=== PATIENT | female | born 1950 | race Caucasian/White ===

== ENCOUNTER 2019-09-07 14:57 | Outpatient (CLI) | payer MEDICARE, SELFPAY ==
--- NOTE | ~2019-09-07 | MM_ITS ---
EXAMINATION: MM screening [facility] BI w brian HISTORY: Screening mammogram TECHNIQUE: Craniocaudal and mediolateral oblique 3-D tomosynthesis images were obtained and synthetic 2-D images were generated. CAD analysis was submitted and interpreted. COMPARISON: Comparison to multiple prior studies sequentially, with oldest reviewed study dated 06/30. BREAST PARENCHYMAL COMPOSITION: There are scattered areas of fibroglandular density. FINDINGS: There is no evidence of suspicious mass, calcification, or architectural distortion to sugg est malignancy in either breast. There has been no suspicious interval change. IMPRESSION: 1. No mammographic evidence of malignancy. 2. Recommend routine screening mammography in one year. BI-RADS Category 1: Negative Reviewed, dictated and finalized at location A.
--- NOTE | ~2019-09-07 | DEXA_ITS ---
Bone Density Report Name: Batsheva White Age: 69 Sex: Female Ethnicity: White Date of : 1950 Indication: postmenopausal; height loss; Referring Provider: Ping Mann Study: Bone densitometry was performed. Exam Date: September 07, 2019 Accession number: [id number] Bone Density: Region BMD T-score Z-score Classification AP Spine (L1-L4) 1.128 0.7 2.8 Normal Femoral Neck (Left) 0.822 -0.2 1.5 Normal Total Hip (Left) 0.917 -0.2 1.3 Normal Total Hip Bilateral Avg 0.879 -0.5 1.0 Normal Femoral Neck (Right) 0.794 -0.5 1.3 Normal Total Hip (Right) 0.840 -0.8 0.6 Normal World Health Organization criteria for BMD impression classify patients as: Normal (T-score at or above -1.0), Osteopenia (T-score between -1.0 and -2.5), or Osteoporosis (T-score at or below -2.5). 10-year Fracture Risk: FRAX not reported because: All T-scores for Spine Total, Hip Total, Femoral Neck at or above -1.0 Previous Exams: Region Exam Age BMD T-score BMD Change BMD Change Date g/cm2 vs Baseline vs Previous AP Spine(L1-L4) 09/07/2019 69 1.128 0.7 0.015(1.4%)# -0.003(-0.2%) 12/15/2017 67 1.131 0.8 0.018(1.6%)# -0.033(-2.9%)# 12/09/2011 61 1.164 1.1 0.051(4.6%)# -0.043(-3.6%)# 11/25/2009 59 1.207 1.5 0.095(8.5%)* 0.095(8.5%)* 02/25/2007 57 1.113 0.6 Total Hip(Left) 09/07/2019 69 0.917 -0.2 -0.112(-10.9%) -0.016(-1.7%) 12/15/2017 67 0.933 -0.1 -0.096(-9.3%)# -0.029(-3.0%)* 12/29/2014 64 0.962 0.2 -0.067(-6.5%)# -0.087(-8.3%)# 12/09/2011 61 1.049 0.9 0.019(1.9%)# 0.032(3.2%)# 11/25/2009 59 1.017 0.6 -0.013(-1.2%) -0.013(-1.2%) 02/25/2007 57 1.029 0.7 Total Hip(Right) 09/07/2019 69 0.840 -0.8 -0.107(-11.3%) 0.008(1.0%) 12/15/2017 67 0.832 -0.9 -0.115(-12.1%) -0.066(-7.4%)* 12/29/2014 64 0.898 -0.4 -0.049(-5.2%)# -0.038(-4.0%)# 12/09/2011 61 0.935 -0.1 -0.011(-1.2%)# -0.015(-1.6%)# 11/25/2009 59 0.950 0.1 0.004(0.4%) 0.004(0.4%) 02/25/2007 57 0.947 0.0 *Denotes significance at 95% confidence level, LSC for AP Spine = 0.022 g/cm2, LSC for Total Hip = 0.027 g/cm2 Clinical Information Provided by Patient: Has used the following medications: Vitamin D, Calcium Patient maximum height was 62.5 Menopause Age: 45 No regular weight bearing exercise Drinks caffeinated beverages Onset of menses at age 12 Number of children 3 Impression
== END 2019-09-07 14:58 | disposition home or self-care (01) ==
PROVIDERS: PCP Physician Assistant; Visit Provider Nurse Practitioner
DX: Z12.31 Encounter for screening mammogram for malignant neoplasm of breast (principal); Z78.0 Asymptomatic menopausal state
CPT/HCPCS: 77063; 77067; 77080

== ENCOUNTER 2019-11-30 12:00 | Outpatient (CLI) | payer MEDICARE, SELFPAY ==
[2019-11-30 12:18] LABS: Hematocrit 42.9 % (37.0-47.0); Hemoglobin 14.1 g/dL (12.0-15.0); Mean Corpuscular HGB Conc 32.9 g/dl (32-36); Mean Corpuscular Hemoglobin 33.6 pg (26-34); Mean Corpuscular Volume 102.1 fl (80-100); Mean Platelet Volume 9.2 fl (7.4-10.4); Platelet Count Result 196 k/mm3 (150-375); Red Cell Distribution Width 12.7 % (11.5-14.5); White Blood Count 5.2 K/mm3 (4.5-10.0)
[2019-11-30 12:30] LABS: Alanine Aminotransferase 15 U/L (4-35); Albumin Level 4.3 g/dL (3.5-5.1); Alkaline Phosphatase 53 U/L (38-126); Anion Gap 5 mmol/L (8-16); Aspartate Amino Transferase 36 U/L (14-36); Bilirubin,Total 0.6 mg/dL (0.2-1.3); Blood Urea Nitrogen 11 mg/dL (7-17); Calcium 9.5 mg/dL (8.4-10.2); Carbon Dioxide 28 mmol/L (22-30); Chloride 105 mmol/L (98-107); Cholesterol 191 mg/dL (0-200); Estimated Glomerular Filt Rate > 60; Glucose 90 mg/dL (65-105); HDL Direct 66 mg/dL; Potassium 4.8 mmol/L (3.4-5.0); Sodium 138 mmol/L (137-145); Triglycerides 91 mg/dL (<150)
[2019-11-30 12:42] LABS: LDL Cholesterol Direct 86 mg/dL
[2019-11-30 13:42] LABS: Folic Acid > 20.0 ng/mL (2.76->20)
== END 2019-11-30 12:01 | disposition home or self-care (01) ==
PROVIDERS: PCP Physician Assistant; Visit Provider Physician Assistant
DX: R53.83 Other fatigue (principal); E78.5 Hyperlipidemia, unspecified
CPT/HCPCS: 36415; 80053; 80061; 82607; 82746; 84443; 85027

== ENCOUNTER → 2020-06-27 13:38 | Outpatient (CLI) | payer MEDICARE, SELFPAY ==
--- NOTE | ~2020-06-27 | MR_ITS ---
EXAMINATION: MR lumbar spine wo con DATE: 06/27/2020 14:16 INDICATION: Lumbar radiculopathy with low back pain and bilateral leg pain. TECHNIQUE: Magnetic resonance imaging (MRI) of the lumbar spine was performed without intravenous con trast. Sequences included sagittal T2-weighted FSE, sagittal T2-weighted FS FSE, sagittal T1-weighted FSE, and axial T2-weighted FSE. COMPARISON: None FINDINGS: Unchanged 102 mm retrolisthesis L1 on L2, 7 mm anterolisthesis L4 on L5 and 2 mm retrolisthesis L5 on S1. Mild anterior wedging at T9. The more caudal thoracic and lumbar vertebral body heights are norm al. Severe disc height loss at L5-S1 and at T8-T9 through T10-T11. Moderate disc height loss at T11-T 12. Mild to moderate disc height loss at L4-L5. There are annular fissures at both L4-L5 and L5-S1. M ild fibrovascular degenerative endplate changes at multiple levels in the lower thoracic spine. Marro w signal is otherwise normal. The conus medullaris terminates at L1. There is normal signal in the ca udal spinal cord. Paravertebral soft tissues are unremarkable. The following disc levels are specific ally discussed: [id number]: Disc is mildly bulging. There is mild bilateral facet joint osteoarthritis. There is mild h ypertrophy of the ligamentum flavum.There is minimal bilateral neural foraminal stenosis. There is mi nimal central canal stenosis. T12-L1: Small right subarticular zone disc protrusion. There is mild bilateral facet joint osteoarthr itis. There is no neural foraminal stenosis. There is minimal central canal stenosis. L1-L2: Disc is bulging. There is hypertrophy of the ligamentum flavum. There is mild to moderate bila teral facet joint osteoarthritis. There is mild bilateral neural foraminal stenosis. There is mild ce ntral canal stenosis. L2-L3: Disc is mildly bulging with superimposed right foraminal zone disc protrusion. There is hypert rophy of the ligamentum flavum. There is moderate right and mild to moderate left facet joint osteoar thritis. There is mild to moderate left and moderate right neural foraminal stenosis. There is mild c entral canal stenosis along with mild narrowing of the left and right lateral recesses. L3-L4: Disc is bulging. There is hypertrophy of the ligamentum flavum. There is severe bilateral face t joint osteoarthritis. There is mild to moderate bilateral neural foraminal stenosis. There is moder ate central canal stenosis along with moderate narrowing of the left and right lateral recesses. L4-L5: Broad-based disc extrusion extending from foraminal zone to foraminal zone with disc material extending up to 3 mm cephalad to the level of the inferior endplate of L4. There is severe bilateral facet joint osteoarthritis. There is moderate bilateral neural foraminal stenosis. There is severe ce ntral canal stenosis. L5-S1: Disc is mildly bulging. There is moderate right and mild to moderate left facet joint osteoart hritis. There is mild right and minimal left neural foraminal stenosis. There is no central canal monika nosis. IMPRESSION: 1. Mild interval progression in moderate lumbar and severe lower thoracic spondylosis with unchanged 7 mm anterolisthesis L4 on L5 which contributes to severe central canal stenosis at this level. Reviewed, dictated and finalized at location A. IMPRESSION: 1. Mild interval progression in moderate lumbar and severe lower thoracic spond ylosis with unchanged 7 mm anterolisthesis L4 on L5 which contributes to severe central canal stenosis at this level.
--- NOTE | ~2020-06-27 | XR_ITS ---
EXAMINATION: XR lumbar spine min 4V DATE: 06/27/2020 14:51 INDICATION: Lumbar radiculopathy TECHNIQUE: Anteroposterior and lateral lumbosacral views of the lumbar spine along with 3 standing la teral views in neutral, flexion and extension were obtained. COMPARISON: Lumbar spine MR dated 06/27/2020 FINDINGS: 9 mm anterolisthesis L4 on L5 in the neutral position which increases to 11 mm with flexion and decre ases to 7 mm with extension. 1.5 mm anterolisthesis of L4 on L5 in the neutral position which increas es to 2 mm with flexion and decreases to 1 mm with extension. Vertebral body heights are normal. Tere re disc height loss at L5-S1 and at T9-T10 and T10-T11. Moderate disc height loss at T11-T12 and L4-L 5. Bilateral severe facet osteoarthritis in the mid to lower lumbar spine. Sacrum and bilateral sacro iliac joints are unremarkable. IMPRESSION: 1. Moderate to severe lumbar and severe lower thoracic spondylosis. 2. 9 mm anterolisthesis L4 on L5 in the standing neutral position which increases to 11 mm with flexi on and decreases to 7 mm with extension. Reviewed, dictated and finalized at location A. IMPRESSION: 1. Moderate to severe lumbar and severe lower thoracic spondylosis. 2. 9 mm anterolisthesis L4 on L5 in the standing neutral position which increas es to 11 mm with flexion and decreases to 7 mm with extension.
== END ==
PROVIDERS: PCP Physician Assistant; Visit Provider Nurse Practitioner Family
DX: M47.25 Other spondylosis with radiculopathy, thoracolumbar region (principal); M48.05 Spinal stenosis, thoracolumbar region; M47.27 Other spondylosis with radiculopathy, lumbosacral region; M48.07 Spinal stenosis, lumbosacral region
CPT/HCPCS: 72110; 72148

== ENCOUNTER 2020-11-29 10:28 | Outpatient (CLI) | payer MEDICARE, SELFPAY ==
[2020-11-29 11:47] LABS: Hematocrit 42.2 % (37.0-47.0); Hemoglobin 13.9 g/dL (12.0-15.0); Mean Corpuscular HGB Conc 32.9 g/dl (32-36); Mean Corpuscular Volume 103.2 fl (80-100); Mean Platelet Volume 9.4 fl (7.4-10.4); Platelet Count Result 223 k/mm3 (150-375); Red Blood Count 4.09 M/mm3 (4.2-5.4); Red Cell Distribution Width 12.7 % (11.5-14.5); White Blood Count 6.6 K/mm3 (4.5-10.0)
[2020-11-29 12:03] LABS: Alanine Aminotransferase 12 U/L (4-35); Albumin Level 4.9 g/dL (3.5-5.1); Alkaline Phosphatase 55 U/L (38-126); Anion Gap 9 mmol/L (8-16); Aspartate Amino Transferase 30 U/L (14-36); Bilirubin,Total 0.4 mg/dL (0.2-1.3); Blood Urea Nitrogen 9 mg/dL (7-17); Calcium 9.9 mg/dL (8.4-10.2); Carbon Dioxide 30 mmol/L (22-30); Chloride 101 mmol/L (98-107); Cholesterol 212 mg/dL (0-200); Estimated Glomerular Filt Rate > 60; Glucose 90 mg/dL (65-110); HDL Direct 71 mg/dL; Potassium 4.4 mmol/L (3.4-5.0); Sodium 140 mmol/L (137-145); Triglycerides 130 mg/dL (<150)
[2020-11-29 12:14] LABS: LDL Cholesterol Direct 89 mg/dL
[2020-11-29 14:36] LABS: Folic Acid > 20.0 ng/mL (2.76->20)
== END 2020-11-29 10:29 | disposition home or self-care (01) ==
LOC: ANHLAB 10:30
PROVIDERS: PCP Physician Assistant; Visit Provider Physician Assistant
DX: E78.5 Hyperlipidemia, unspecified (principal); R53.83 Other fatigue
CPT/HCPCS: 36415; 80053; 80061; 82607; 82746; 84443; 85027

== ENCOUNTER 2021-02-15 15:29 | Outpatient (CLI) | payer MEDICARE, SELFPAY ==
--- NOTE | ~2021-02-15 | MM_ITS ---
EXAMINATION: MM screening [place] BI w brian HISTORY: Screening TECHNIQUE: Craniocaudal and mediolateral oblique 3-D tomosynthesis images were obtained and synthetic 2-D images were generated. CAD analysis was submitted and interpreted. COMPARISON: Comparison to multiple prior studies sequentially, with oldest reviewed study dated 12/09. BREAST PARENCHYMAL COMPOSITION: There are scattered areas of fibroglandular density. FINDINGS: There is no evidence of suspicious mass, calcification, or architectural distortion to sugg est malignancy in either breast. There has been no suspicious interval change. IMPRESSION: 1. No mammographic evidence of malignancy. 2. Recommend routine screening mammography in one year. BI-RADS Category 1: Negative Reviewed, dictated and finalized at location A. 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
== END 2021-02-15 15:30 | disposition home or self-care (01) ==
LOC: ANHIMG 15:31
PROVIDERS: PCP Physician Assistant; Visit Provider Obstetrics & Gynecology
DX: Z12.31 Encounter for screening mammogram for malignant neoplasm of breast (principal)
CPT/HCPCS: 77063; 77067

== ENCOUNTER → 2021-09-05 15:40 | Outpatient (CLI) | payer MEDICARE, SELFPAY ==
--- NOTE | ~2021-09-05 | XR_ITS ---
EXAM: XR hip LT min 3V w AP pelvis DATE: 09/05/2021 16:24 HISTORY: M25.552 - Pain in left hip . COMPARISON: None available. FINDINGS: Decreased mineralization. No fracture or dislocation. No lytic or blastic lesion. Degenera tive changes in the lower lumbar spine and pubic symphysis. Mild superior bilateral hip joint space n arrowing. Scattered enthesopathy. No erosion or periosteal change. Soft tissues within normal limits. IMPRESSION: No acute osseous finding in the left hip. Reviewed, dictated and finalized at location K.
--- NOTE | ~2021-09-05 | XR_ITS ---
EXAM: XR lumbar spine 6V w bending DATE: 09/05/2021 16:23 HISTORY: M54.50 - Low back pain, unspecified . COMPARISON: None available. FINDINGS: 5 nonrib-bearing lumbar-type vertebral bodies. Pedicles intact. Normal vertebral body alig nment. 2 mm anterolisthesis of L3 on L4. 8 mm anterolisthesis of L4 on L5. Moderate disc space narrow ing at L4-5, with severe narrowing at L5-S1, and mild narrowing at multiple additional levels. Multil evel facet sclerosis and interspinous narrowing. IMPRESSION: Grade 2 anterolisthesis of L5 on S1. Grade 1 anterolisthesis of L3 on L4. No dynamic list hesis detected. Multilevel degenerative disc disease. Multilevel severe facet arthropathy and intersp inous impingement. Reviewed, dictated and finalized at location K. IMPRESSION: Grade 2 anterolisthesis of L5 on S1. Grade 1 anterolisthesis of L3 on L4. No dynamic listhesis detected. Multilevel degenerative disc disease. Mul tilevel severe facet arthropathy and interspinous impingement.
== END ==
PROVIDERS: PCP Internal Medicine; Visit Provider Physician Assistant
DX: M25.552 Pain in left hip (principal); M54.50 Low back pain, unspecified; M43.17 Spondylolisthesis, lumbosacral region; M51.36 Other intervertebral disc degeneration, lumbar region; M12.88 Other specific arthropathies, not elsewhere classified, other specified site
CPT/HCPCS: 72114; 73502

== ENCOUNTER 2021-11-30 14:17 | Outpatient (CLI) | payer MEDICARE, SELFPAY ==
[2021-11-30 15:01] LABS: Hematocrit 40.1 % (37.0-47.0); Hemoglobin 12.9 g/dL (12.0-15.0); Mean Corpuscular HGB Conc 32.2 g/dl (32-36); Mean Corpuscular Hemoglobin 33.2 pg (26-34); Mean Corpuscular Volume 103.1 fl (80-100); Mean Platelet Volume 9.5 fl (7.4-10.4); Platelet Count Result 208 k/mm3 (150-375); Red Blood Count 3.89 M/mm3 (4.2-5.4); Red Cell Distribution Width 13.2 % (11.5-14.5); White Blood Count 6.3 K/mm3 (4.5-10.0)
[2021-11-30 15:26] LABS: LDL Cholesterol Direct 77 mg/dL
[2021-11-30 15:31] LABS: Alanine Aminotransferase 17 U/L (6-35); Albumin Level 4.3 g/dL (3.5-5.1); Alkaline Phosphatase 52 U/L (38-126); Anion Gap 9 mmol/L (8-16); Aspartate Amino Transferase 30 U/L (14-36); Bilirubin,Total 0.3 mg/dL (0.2-1.3); Blood Urea Nitrogen 13 mg/dL (7-17); Calcium 8.8 mg/dL (8.4-10.2); Carbon Dioxide 27 mmol/L (22-30); Chloride 99 mmol/L (98-107); Cholesterol 192 mg/dL (0-200); Estimated Glomerular Filt Rate > 60; Glucose 83 mg/dL (65-110); HDL Direct 78 mg/dL; Potassium 3.9 mmol/L (3.4-5.0); Sodium 135 mmol/L (137-145); Triglycerides 98 mg/dL (<150)
[2021-11-30 16:20] LABS: Folic Acid 19.2 ng/mL (2.76->20)
== END 2021-11-30 14:18 | disposition home or self-care (01) ==
PROVIDERS: PCP Internal Medicine; Visit Provider Physician Assistant
DX: E78.5 Hyperlipidemia, unspecified (principal); R53.83 Other fatigue
CPT/HCPCS: 36415; 80053; 80061; 82607; 82746; 84443; 85027

== ENCOUNTER 2021-12-06 15:11 | Emergency (ER) | payer MEDICARE, SELFPAY ==
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
--- NOTE | ~2021-12-06 | CT_ITS ---
EXAMINATION: CT cervical spine wo con DATE: 12/06/2021 16:21 INDICATION: Head injury TECHNIQUE: Computed tomography (CT) of the cervical spine was performed without intravenous contrast. Automated exposure control and iterative reconstruction technique were employed. The dose-length pro duct was 161.93 mGy-cm. COMPARISON: None FINDINGS: 2 mm retrolisthesis C3 on C4 and C4 on C5. 1 mm retrolisthesis C5 on C6. 1-2 mm anterolisthesis C7 on T1. Vertebral body heights are normal. No fracture. Severe disc height loss with prominent degenerat katarina endplate changes and severe uncovertebral osteoarthritis at C3-C4 through C6-C7 and at T1-T2 and T2-T3. Moderate disc height loss at T3-T4 and T4-T5. Mild disc height loss at C2-C3 and C7-T1. Sectional [employer] Mold As[employer]er ior disc osteophyte complexes resulting in mild central canal stenosis from C2-C3 through C6-7. Multi level bilateral moderate to severe cervical and upper thoracic facet osteoarthritis. There is moderat e to severe neural foraminal stenosis on the left at C4-C5:, Moderate neural foraminal stenosis on th e left at C5-C6 and C6-C7, on the right at C3-C4 and bilaterally at T1-T2 and T2-T3. Calcified left a pical nodule consistent with old granulomatous disease. Cervical soft tissues are unremarkable. IMPRESSION: 1. Severe cervical spondylosis. No acute osseous abnormality. Reviewed, dictated and finalized at location A.
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
[2021-12-06 15:08] VITALS: BP 120/64; PULSE 87; RESP 18; TEMP 36.3; O2SAT 98
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
--- NOTE | 2021-12-06 16:36 | PC.NURSE ---
[facility] lights and /sirens to [facility] ER ETA 20 min Trip # [phone]
[2021-12-06 16:42] VITALS: BP 117/66; PULSE 84; RESP 16; O2SAT 98
[2021-12-06 16:43] VITALS: BP 117/66; PULSE 84; RESP 16; O2SAT 98
--- NOTE | 2021-12-06 17:12 | PC.NURSE ---
To [facility] via [place] [facility].
== END 2021-12-06 17:12 | disposition short-term general hospital (02) ==
PROVIDERS: Emergency Provider Emergency Medicine; PCP Physician Assistant
DX: S09.90XA Unspecified injury of head, initial encounter (principal); S39.92XA Unspecified injury of lower back, initial encounter; Z86.19 Personal history of other infectious and parasitic diseases; Z87.891 Personal history of nicotine dependence; V19.40XA Pedal cycle driver injured in collision with unspecified motor vehicles in traffic accident, initial encounter; Y93.55 Activity, bike riding
CPT/HCPCS: 70450; 71045; 72125; 72170; 99285

== ENCOUNTER → 2022-01-17 09:24 | Outpatient (CLI) | payer MEDICARE, SELFPAY ==
--- NOTE | ~2022-01-17 | XR_ITS ---
EXAMINATION: XR lumbar spine min 4V DATE: 01/17/2022 09:43 INDICATION: Six week status post compression fracture TECHNIQUE: AP view the lumbar spine and lateral views of the lumbar spine in neutral, flexion, and ex tension are submitted. COMPARISON: 09/05/2021 FINDINGS: There is stable grade 2 anterolisthesis of L4-5. No laxity is present with flexion or exten jalen. There is a compression fracture of L2 with 40% loss of anterior vertebral body height. The brianda ining lumbar vertebral body heights are normal. There is severe spondylosis of the visualized lower t horacic spine. There are moderate loss of intervertebral disc space height at L4-5. There is moderate facet osteoarthritis. There is mild sclerosis at the left sacroiliac joint. IMPRESSION: 1. L2 compression fracture with 40% loss of anterior vertebral body height. 2. Mild lumbar spondylosis with stable grade 2 anterolisthesis of L4 on L5. Reviewed, dictated and finalized at location B. ECTOR
== END ==
PROVIDERS: PCP Internal Medicine; Visit Provider Neurological Surgery
DX: S32.020A Wedge compression fracture of second lumbar vertebra, initial encounter for closed fracture (principal); M47.816 Spondylosis without myelopathy or radiculopathy, lumbar region; T14.90XA Injury, unspecified, initial encounter
CPT/HCPCS: 72110

== ENCOUNTER 2022-01-22 12:03 | Outpatient (CLI) | payer MEDICARE, SELFPAY ==
--- NOTE | ~2022-01-22 | DEXA_ITS ---
Bone Density Report Name: EDMUND ALEX Age: 72 Sex: Female Ethnicity: White Date of : 1950 Indication: postmenopausal; screening for osteoporosis; height loss; prior fracture; Referring Provider: KEO FRIAS Study: Bone densitometry was performed. Exam Date: January 22, 2022 Accession number: [id number] Bone Density: Region BMD T-score Z-score Classification AP Spine(L1, L3, L4) 1.107 0.5 2.7 Normal Femoral Neck (Left) 0.782 -0.6 1.3 Normal Total Hip (Left) 0.865 -0.6 1.0 Normal Femoral Neck (Right) 0.764 -0.8 1.1 Normal Total Hip (Right) 0.818 -1.0 0.6 Normal Total Hip Mean 0.842 -0.8 0.8 Normal World Health Organization criteria for BMD impression classify patients as: Normal (T-score at or above -1.0), Osteopenia (T-score between -1.0 and -2.5), or Osteoporosis (T-score at or below -2.5). 10-year Fracture Risk: FRAX not reported because: All T-scores for Spine Total, Hip Total, Femoral Neck at or above -1.0 Prior hip or vertebral fracture Clinical Information Provided by Patient: Have had a previous hip or vertebral fracture Has had a low trauma fracture Has used the following medications: Vitamin D, Calcium Patient maximum height was 62 Drinks caffeinated beverages Onset of menses at age 12 Number of children 3 Impression: The patient has normal bone mass. The patient has risk factors, including: previous fracture. Discussion: INCREASED RISK OF FRACTURE DUE TO HISTORY OF FRACTURE. The patient's previous fracture puts the patient at high risk of a future fracture. In untreated patients, the risk of osteoporotic fracture increases approximately two-fold for each 1.0 SD decrease in T-score. Low bone density is not the only risk factor for fracture; also consider factors such as patient's age, frailty or poor health, risk of falling, risk of injury, previous osteoporotic fracture, family history of osteoporosis, cigarette smoking, low body weight, etc. Not everyone with a low trauma fracture has osteoporosis; osteomalacia and other metabolic bone disorders should also be considered. Patients who have osteoporosis should be evaluated for specific diseases and conditions (secondary causes) that may cause or contribute to bone loss and fracture risk. National Osteoporosis Foundation (NOF) recommends pharmacologic intervention for patients with a prior hip or vertebral fracture regardless of BMD T-score. The patient should follow a healthful lifestyle (good nutrition with adequate calcium and vitamin D, and appropriate weight-bearing exercise). Follow-Up: Consider a repeat BMD and Vertebral Fracture Assessment (VFA) exam in 2 years or sooner if medically necessary, to reassess this patient's status. Reported by: HANNAH on 01/22/2022 12:26:00 PM.
== END 2022-01-22 12:04 | disposition home or self-care (01) ==
PROVIDERS: PCP Internal Medicine; Visit Provider Neurological Surgery
DX: S32.020A Wedge compression fracture of second lumbar vertebra, initial encounter for closed fracture (principal)
CPT/HCPCS: 77080

== ENCOUNTER 2022-01-23 08:45 | Outpatient (CLI) | payer MEDICARE, SELFPAY ==
[2022-01-23 09:08] LABS: Basophils Percent Auto 0.7 % (0.2-1.2); Eosinophils Absolute Auto 0.1 K/mm3 (0-0.3); Eosinophils Percent Auto 2.6 % (0-4.4); Hematocrit 41.1 % (37.0-47.0); Hemoglobin 13.4 g/dL (12.0-15.0); Immature Granulocyte Absolute 0.01 K/mm3 (0.00-0.031); Immature Granulocyte Percent A 0.2 % (0-0.5); Lymphocytes Absolute Auto 2.51 K/mm3 (0.9-3.2); Lymphocytes Percent Auto 45.7 % (18.3-44.2); Mean Corpuscular HGB Conc 32.6 g/dl (32-36); Mean Corpuscular Hemoglobin 33.4 pg (26-34); Mean Corpuscular Volume 102.5 fl (80-100); Mean Platelet Volume 8.9 fl (7.4-10.4); Monocytes Absolute Auto 0.6 K/mm3 (0.1-0.6); Neutrophils Absolute Auto 2.2 K/mm3 (1.3-6.7); Neutrophils Percent Auto 40.8 % (45.5-73.1); Platelet Count Result 220 k/mm3 (150-375); Red Blood Count 4.01 M/mm3 (4.2-5.4); Red Cell Distribution Width 13.7 % (11.5-14.5); White Blood Count 5.5 K/mm3 (4.5-10.0)
[2022-01-23 09:20] LABS: Alanine Aminotransferase 17 U/L (6-35); Albumin Level 4.5 g/dL (3.5-5.1); Alkaline Phosphatase 55 U/L (38-126); Anion Gap 8 mmol/L (8-16); Aspartate Amino Transferase 38 U/L (14-36); Bilirubin,Total 0.7 mg/dL (0.2-1.3); Blood Urea Nitrogen 10 mg/dL (7-17); Calcium 9.7 mg/dL (8.4-10.2); Carbon Dioxide 32 mmol/L (22-30); Chloride 100 mmol/L (98-107); Cholesterol 214 mg/dL (0-200); Estimated Glomerular Filt Rate > 60; Glucose 89 mg/dL (65-110); HDL Direct 80 mg/dL; Potassium 4.2 mmol/L (3.4-5.0); Sodium 140 mmol/L (137-145); Triglycerides 100 mg/dL (<150)
[2022-01-23 09:36] LABS: LDL Cholesterol Direct 81 mg/dL
[2022-01-23 10:20] LABS: Hepatitis C Virus Antibody Reactive (Negative)
[2022-01-23 10:32] LABS: Folic Acid > 20.0 ng/mL (2.76->20)
[2022-01-25 15:21] LABS: Hepatitis C RNA, Quant PCR <15 IU/mL
== END 2022-01-23 08:46 | disposition home or self-care (01) ==
PROVIDERS: PCP Internal Medicine; Visit Provider Internal Medicine
DX: E78.5 Hyperlipidemia, unspecified (principal); Z86.19 Personal history of other infectious and parasitic diseases; R53.83 Other fatigue
CPT/HCPCS: 36415; 80053; 80061; 82607; 82746; 84443; 85025; 86803; 87522

== ENCOUNTER 2022-01-29 13:05 | Outpatient (CLI) | payer MEDICARE, SELFPAY ==
--- NOTE | 2022-01-29 13:46 | ECHO_ITS ---
Patient Info Name: Batsheva White Age: 72 years : 1950 Gender: Female Ht: 61 in Wt: 116 lbs BSA: 1.51 m2 HR: 66 bpm BP: 136 / 89 mmHg Heart Rhythm: Sinus Rhythm Technical Quality: Good Exam Date: 01/29/2022 2:12 PM Exam Location: [facility] Pulmonary Patient Status: Outpatient Admit Date: 01/29/2022 Staff Ordering Physician: Marty Patrick DO Resin Maker: Shayy Goldman RDCS Attending Provider: Marty Patrick DO Referring Physician: Celina BRIDGES; Exam Type: CA echo doppler color flow Study Info Indications I51.3 - Intracardiac thrombosis, not elsewhere classified Complete two-dimensional, color flow and Doppler transthoracic echocardiogram is performed. Summary 1. Complete two-dimensional, color flow and Doppler transthoracic echocardiogram is performed. 2. Normal left ventricular size and thickness with good contractility of all segments. Normal diastolic function. The calculated ejection fraction is 50 9%; visually appeared 55-60%. Global longitudinal strain is normal at -17%. 3. Borderline right ventricular enlargement with normal function. 4. Left atrial chamber dimension is mildly enlarged. 5. Right atrial chamber dimension is mildly enlarged. 6. There is moderate tricuspid valve regurgitation. 7. Mild pulmonary hypertension, estimated pulmonary arterial systolic pressure is 35 mmHg. 8. Normal sinus rhythm. Left Ventricle Left ventricular chamber dimension is normal. Left ventricular systolic function is normal, estimated at 55-60%. There is no increased left ventricular wall thickness. Left ventricular septal wall motion is normal. The left ventricular diastolic function is normal. Global longitudinal strain is normal at -17 %. Right Ventricle Right ventricular chamber dimension is mildly enlarged. Right ventricular systolic function is normal. Left Atria Left atrial chamber dimension is mildly enlarged. Right Atria Right atrial chamber dimension is mildly enlarged. Aortic Valve The aortic valve is trileaflet. There is no aortic valve sclerosis. There is no aortic valve stenosis. There is trace aortic valve regurgitation. Pulmonic Valve The pulmonic valve is normal. There is no pulmonic valve stenosis. There is trace pulmonic regurgitation. Mitral Valve The mitral valve has normal leaflets. There is no mitral valve stenosis. There is trace mitral valve regurgitation. Tricuspid Valve The tricuspid valve leaflets are normal. There is no significant tricuspid valve stenosis. There is moderate tricuspid valve regurgitation. Mild pulmonary hypertension, estimated pulmonary arterial systolic pressure is 35 mmHg. Pericardium/Pleural The pericardium appears normal. There is no pericardial effusion. Inferior Vena Cava Normal inferior vena cava with >50% collapse upon inspiration consistent with Empty right atrial pressure, 10 mmHg. Aorta The aortic root size at the sinus of Valsalva is normal. The prox ascending aorta size is normal. Left Ventricular Outflow Tract Name Value Normal LVOT 2D LVOT Diameter 1.9 cm LVOT Doppler LVOT Pea
[2022-01-29 14:08] LABS: Appearance Urine Clear (Clear); Bilirubin Urine Negative (Negative); Blood Urine Negative (Negative); Color Urine Yellow (Yellow); Glucose Urine UA Negative (Negative); Ketones Urine Negative (Negative); Leukocyte Esterase Ur Negative LEU/UL (NEGATIVE); Nitrate Urine Negative (Negative); Protein Urine Negative (Negative); Urobilinogen Urine 0.2 mg/dL (<2.0)
[2022-01-29 14:12] LABS: Add Urine Microscopic? NO
== END 2022-01-29 13:06 | disposition home or self-care (01) ==
PROVIDERS: PCP Internal Medicine; Visit Provider Internal Medicine
DX: I51.3 Intracardiac thrombosis, not elsewhere classified (principal); I27.20 Pulmonary hypertension, unspecified; I51.7 Cardiomegaly; R30.0 Dysuria; Z09 Encounter for follow-up examination after completed treatment for conditions other than malignant neoplasm
CPT/HCPCS: 81003; 93306

== ENCOUNTER 2022-02-16 13:39 | Outpatient (CLI) | payer MEDICARE, SELFPAY ==
--- NOTE | ~2022-02-16 | MM_ITS ---
EXAMINATION: MM screening [place] BI w brian HISTORY: Screening TECHNIQUE: Craniocaudal and mediolateral oblique 3-D tomosynthesis images were obtained and synthetic 2-D images were generated. CAD analysis was submitted and interpreted. COMPARISON: Comparison to multiple prior studies sequentially, with oldest reviewed study dated 04/2015. BREAST PARENCHYMAL COMPOSITION: There are scattered areas of fibroglandular density. FINDINGS: There is no evidence of suspicious mass, calcification, or architectural distortion to sugg est malignancy in either breast. There has been no suspicious interval change. IMPRESSION: 1. No mammographic evidence of malignancy. 2. Recommend routine screening mammography in one year. BI-RADS Category 1: Negative Reviewed, dictated and finalized at location B. 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
== END 2022-02-16 13:40 | disposition home or self-care (01) ==
LOC: ANHIMG 13:43
PROVIDERS: PCP Internal Medicine; Visit Provider Obstetrics & Gynecology
DX: Z12.31 Encounter for screening mammogram for malignant neoplasm of breast (principal)
CPT/HCPCS: 77063; 77067

== ENCOUNTER → 2022-02-18 09:18 | Outpatient (CLI) | payer MEDICARE, SELFPAY ==
--- NOTE | ~2022-02-18 | CT_ITS ---
EXAMINATION: CT diagnostic chest w con DATE: 02/18/2022 09:49 INDICATION: Pulmonary hypertension TECHNIQUE: Transaxial computed tomographic images of the chest were obtained after the administration of 75 cc of Omnipaque 350 intravenous contrast. The dose-length product (DLP) was 124.65 mGy-cm. Ite rative reconstruction was used. COMPARISON: None FINDINGS: There is mild dependent atelectasis. The lungs are free of focal airspace opacities. No ple ural effusion or pneumothorax. No pathologically enlarged thoracic lymph nodes are identified. The he art size is normal. There are no definite findings of pulmonary hypertension. There is a 10 mm cyst o f the left hepatic lobe. There is severe thoracic spondylosis. A burst fracture of L2 is without sign ificant change. IMPRESSION: 1. No definite CT findings of pulmonary hypertension. Reviewed, dictated and finalized at location A. 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
[2022-02-18 09:39] LABS: Estimated Glomerular Filt Rate > 60
== END ==
PROVIDERS: PCP Internal Medicine; Visit Provider Internal Medicine Cardiovascular Disease
DX: I27.20 Pulmonary hypertension, unspecified (principal); R07.89 Other chest pain
CPT/HCPCS: 71260; Q9967

== ENCOUNTER 2022-02-27 07:57 | Outpatient (CLI) | payer MEDICARE, SELFPAY ==
--- NOTE | 2022-03-19 01:22 | WPDHOMESLEEP ---
Sleep Study - Home Unattended Date of Study: 02/27/22 Ordering Provider: Nayeli Lan MD Interpreting Provider: Alison Sevilla, DO Home Sleep Study Type: Watch PAT Height: 1.55 m Weight: 52.617 kg Body Mass Index: 21.9 Neck Circumference (inches): 12 [place]: 2 Reason for Sleep Study Oxygen desaturations overnight Sleep History The patient is a 72-year-old female with pulmonary hypertension, tricuspid regurgitation, GERD, spinal stenosis, nutcracker syndrome, history of hepatitis-C, hepatitis B and GERD that had a sleep study ordered by her raftsman for evaluation of sleep apnea. The patient denies awakening from sleep short of breath. She rarely awakens at night with heartburn, belching or cough. She occasionally snores when she lays on her back but it is rarely loud enough that others complain. She occasionally has trouble sleeping when she has a cold. She denies waking up gasping for air throughout the night. She rarely has breathing problems at night observed by herself or others. He rarely sweats excessively at night. She rarely has heart palpitations or irregular heartbeats during the night. She denies falling asleep during the day and while driving. She denies sleep paralysis and cataplexy. She rarely experiences vivid dreamlike scenes upon awakening or falling asleep. She denies feeling afraid of falling asleep. She rarely has nightmares and rarely remembers her dreams. She occasionally has thoughts racing through her mind. She denies feeling sad or depressed. She rarely has anxiety. She occasionally has muscular tension. She occasionally notices parts of her body jerk. She denies kicking during the night. She frequently has crawling and aching feelings in her legs and frequently has leg pain during the night. She rarely grinds her teeth during sleep and never awakens with morning jaw pain. She is frequently bothered by pain during the day and frequently awakened by pain during the night. She frequently wakes up feeling stiff in the morning. She occasionally wakes up with sore achy muscles. She frequently wakes up with pain in the neck, spine or other joints. She goes to bed at 11:00 p.m. on both weekdays and weekends. The amount of time it takes her to fall asleep is variable. She wakes up 1-2 times throughout the night to urinate. She is able to fall back asleep within a few minutes. He wakes up at 7:30 a.m. on both weekdays and weekends. She typically gets 6-8 hours of sleep per night. She will stay in bed for 1-2 hours after waking up in the morning. She currently lives with her partner. She does not consume any caffeinated beverages within 2 hours of bedtime. She does not engage in physical exercise before bedtime. She will read and watch television before falling asleep. She denies taking naps in the afternoon or the evening. She drinks 2-3 cups of caffeinated beverage per day. She rarely consumes alcohol. She quit smoking 30 years ago. She denies recreational drug use. [facility]LY [facility] Past Medical History Medical History (Updated 03/19/22 @ 01:31 by Alison Sevilla DO) Hepatitis B Hepatitis C Shingles Surgical History Surgical History History of liver biopsy (~2008) Family History Family History Mother Patient's mother is in good health Hypertension Family history of congestive heart failure Father Family history of malignant neoplasm Patient's father is Social History Social History Smoking packs per day: 0.25 Smoking cigarettes per day: 5.0 Years smoked: 3 Smoking pack-years: 0.75 Smoking status: Former smoker Second hand tobacco smoke exposure: Yes Smoking end date: 03/10/77 Alcohol intake: current Substance use: never Lack of Transportation: No Lack of Fo
[2022-03-19 01:33] VITALS: BMI 21.9
== END 2022-02-28 10:47 | disposition home or self-care (01) ==
LOC: ANHCSM 07:59
PROVIDERS: PCP Internal Medicine; Visit Provider Internal Medicine Cardiovascular Disease
DX: G47.33 Obstructive sleep apnea (adult) (pediatric) (principal); I27.20 Pulmonary hypertension, unspecified; R09.02 Hypoxemia
CPT/HCPCS: 95800

== ENCOUNTER 2022-11-28 14:52 | Outpatient (CLI) | payer MEDICARE, SELFPAY ==
[2022-11-28 15:31] LABS: Basophils Percent Auto 0.3 % (0.2-1.2); Eosinophils Absolute Auto 0.1 K/mm3 (0-0.3); Eosinophils Percent Auto 2.2 % (0-4.4); Hematocrit 38.1 % (37.0-47.0); Hemoglobin 12.5 g/dL (12.0-15.0); Immature Granulocyte Absolute 0.02 K/mm3 (0.00-0.031); Immature Granulocyte Percent A 0.3 % (0-0.5); Lymphocytes Absolute Auto 2.58 K/mm3 (0.9-3.2); Lymphocytes Percent Auto 42.7 % (18.3-44.2); Mean Corpuscular HGB Conc 32.8 g/dl (32-36); Mean Corpuscular Hemoglobin 33.2 pg (26-34); Mean Corpuscular Volume 101.1 fl (80-100); Mean Platelet Volume 8.8 fl (7.4-10.4); Monocytes Absolute Auto 0.6 K/mm3 (0.1-0.6); Monocytes Percent Auto 9.8 % (2.6-8.5); Neutrophils Absolute Auto 2.7 K/mm3 (1.3-6.7); Neutrophils Percent Auto 44.7 % (45.5-73.1); Platelet Count Result 208 k/mm3 (150-375); Red Blood Count 3.77 M/mm3 (4.2-5.4); Red Cell Distribution Width 12.9 % (11.5-14.5)
[2022-11-28 15:42] LABS: Alanine Aminotransferase 17 U/L (6-35); Albumin Level 4.4 g/dL (3.5-5.1); Alkaline Phosphatase 56 U/L (38-126); Anion Gap 5 mmol/L (8-16); Aspartate Amino Transferase 37 U/L (14-36); Bilirubin,Total 0.4 mg/dL (0.2-1.3); Blood Urea Nitrogen 10 mg/dL (7-17); Calcium 8.9 mg/dL (8.4-10.2); Carbon Dioxide 31 mmol/L (22-30); Chloride 99 mmol/L (98-107); Cholesterol 198 mg/dL (0-200); Estimated Glomerular Filt Rate > 60; Glucose 73 mg/dL (65-110); HDL Direct 71 mg/dL; Potassium 4.1 mmol/L (3.4-5.0); Sodium 135 mmol/L (137-145); Triglycerides 122 mg/dL (<150)
[2022-11-28 15:53] LABS: LDL Cholesterol Direct 86 mg/dL
== END 2022-11-28 14:53 | disposition home or self-care (01) ==
PROVIDERS: PCP Internal Medicine; Visit Provider Internal Medicine
DX: E78.5 Hyperlipidemia, unspecified (principal); R53.83 Other fatigue; F32.5 Major depressive disorder, single episode, in full remission
CPT/HCPCS: 36415; 80053; 80061; 84443; 85025

== ENCOUNTER → 2022-12-13 13:12 | Outpatient (CLI) | payer MEDICARE, SELFPAY ==
--- NOTE | ~2022-12-13 | CT_ITS ---
EXAMINATION: CT abdomen wo con DATE: 12/13/2022 13:29 INDICATION: Liver disease. Liver masses. TECHNIQUE: Computed tomography (CT) of the abdomen was performed without intravenous contrast. Automa aidee exposure control and iterative reconstruction technique were employed. The dose-length product wa s 166.16 mGy-cm. COMPARISON: chest CT 02/18/2022 FINDINGS: The visualized portions of the lung bases demonstrate chronic peripheral reticular opacitie s. There is peripheral honeycombing in right lower lobe. No pleural effusion. The heart size is staci l. No pericardial effusion. There are cysts in the liver measuring up to 13 mm. The gallbladder, sple en, pancreas, adrenal glands, and kidneys are normal. There are no dilated loops of bowel. There is d iverticulosis of the colon without evidence of diverticulitis. There are no pathologically enlarged l ymph nodes. There is no free intraperitoneal fluid. There is severe thoracic and lumbar spondylosis. There is a chronic burst fracture of L2. IMPRESSION: 1. Benign cysts in the liver. Reviewed, dictated and finalized at location E.
== END ==
PROVIDERS: PCP Internal Medicine; Visit Provider Internal Medicine
DX: K76.89 Other specified diseases of liver (principal)
CPT/HCPCS: 74150

== ENCOUNTER 2022-12-17 11:35 | Outpatient (CLI) | payer MEDICARE, SELFPAY ==
[2022-12-17 12:24] LABS: Rheumatoid Factor < 12.0 IU/ML (<12)
[2022-12-20 12:09] LABS: Anti Cyclic Citrullinated Pept <16 Units (<20)
[2022-12-20 13:35] LABS: Anti Nuclear Antibody Titer 1:40 (Negative)
[2022-12-23 21:57] LABS: ANCA Screen Negative (Negative)
== END 2022-12-17 11:36 | disposition home or self-care (01) ==
PROVIDERS: PCP Internal Medicine; Visit Provider Internal Medicine Pulmonary Disease
DX: I73.00 Raynaud's syndrome without gangrene (principal); J84.9 Interstitial pulmonary disease, unspecified
CPT/HCPCS: 36415; 86036; 86038; 86039; 86200; 86430

== ENCOUNTER 2023-01-24 12:26 | Outpatient (CLI) | payer MEDICARE, SELFPAY ==
--- NOTE | 2023-01-24 14:34 | WPDPFTINT ---
PFT Procedure Performed PFT Procedure Performed Spirometry with Pre/Post Bronchodilator Plethysmography (Lung Vol) Diffusing Cap (DLCO) Flow Vol Loop PFT Interpretation This is a pulmonary function test with pre and post-bronchodilator spirometry, plethysmography and diffusing capacity. The test was performed and results interpreted in accordance with the 2019 and 2005 ATS/ERS Task Force guidelines respectively using the Global Lung Function Initiative-2012 reference equations. Patient demonstrated good effort and cooperation. Reproducibility criteria were met. The quality of the pre bronchodilator spirometry maneuver was Grade B and post bronchodilator spirometry maneuver was Grade A. Findings: Spirometry: There is decreased maximal expiratory airflow at all lung volumes with concave expiratory flow tracing. The contour the inspiratory flow tracing is normal. The pre bronchodilator FVC is 2.72 L, 110% predicted. The pre bronchodilator FEV1 is 1.63 L, 85% predicted. The pre bronchodilator FEV1: FVC ratio 60%. The post bronchodilator FVC is 2.80 L, representing a 3% increase. The post bronchodilator FEV1 is 1.71 L, representing a 5% increase. The post bronchodilator FEV1: FVC ratio 61%. Plethysmography: The total lung capacity is 5.29 L, 115% predicted. The functional residual capacity is 3.13 L, 119% predicted. The residual volume is 2.57 L, 122% predicted. Diffusing capacity: The diffusing capacity unadjusted for hemoglobin and carboxyhemoglobin is 13.5, 71% predicted. The diffusing capacity adjusted for alveolar volume is 3.42, 78% predicted. Impression: There is a mild obstructive abnormality with a normal FEV1 and without significant improvement after inhaling a single dose of albuterol. The lung volumes are normal. The diffusing capacity is normal. There are no prior studies for comparison
== END 2023-01-24 12:27 | disposition home or self-care (01) ==
LOC: ANHPFT 12:27
PROVIDERS: PCP Internal Medicine; Visit Provider Internal Medicine Pulmonary Disease
DX: J84.9 Interstitial pulmonary disease, unspecified (principal); R94.2 Abnormal results of pulmonary function studies
CPT/HCPCS: 94060; 94726; 94729

== ENCOUNTER 2023-05-21 11:43 | Outpatient (CLI) | payer MEDICARE, SELFPAY ==
[2023-05-21 12:21] LABS: Basophils Percent Auto 0.6 % (0.2-1.2); Eosinophils Absolute Auto 0.1 K/mm3 (0-0.3); Eosinophils Percent Auto 0.9 % (0-4.4); Hematocrit 39.1 % (37.0-47.0); Hemoglobin 12.6 g/dL (12.0-15.0); Immature Granulocyte Absolute 0.01 K/mm3 (0.00-0.031); Immature Granulocyte Percent A 0.2 % (0-0.5); Lymphocytes Absolute Auto 1.85 K/mm3 (0.9-3.2); Lymphocytes Percent Auto 34.5 % (18.3-44.2); Mean Corpuscular HGB Conc 32.2 g/dl (32-36); Mean Corpuscular Volume 102.4 fl (80-100); Mean Platelet Volume 9.1 fl (7.4-10.4); Monocytes Absolute Auto 0.4 K/mm3 (0.1-0.6); Monocytes Percent Auto 7.6 % (2.6-8.5); Neutrophils Percent Auto 56.2 % (45.5-73.1); Platelet Count Result 197 k/mm3 (150-375); Red Blood Count 3.82 M/mm3 (4.2-5.4); White Blood Count 5.4 K/mm3 (4.5-10.0)
[2023-05-21 12:45] LABS: Alanine Aminotransferase 14 U/L (6-35); Albumin Level 4.3 g/dL (3.5-5.1); Alkaline Phosphatase 61 U/L (38-126); Anion Gap 6 mmol/L (8-16); Aspartate Amino Transferase 35 U/L (14-36); Bilirubin,Total 0.7 mg/dL (0.2-1.3); Blood Urea Nitrogen 9 mg/dL (7-17); Calcium 9.3 mg/dL (8.4-10.2); Carbon Dioxide 29 mmol/L (22-30); Chloride 104 mmol/L (98-107); Cholesterol 198 mg/dL (0-200); Estimated Glomerular Filt Rate > 60; Glucose 81 mg/dL (65-110); HDL Direct 77 mg/dL; Sodium 139 mmol/L (137-145); Triglycerides 85 mg/dL (<150)
[2023-05-21 12:57] LABS: LDL Cholesterol Direct 91 mg/dL
[2023-05-21 13:01] LABS: Complement C3 103 mg/dL (88-165)
[2023-05-21 13:05] LABS: Iron 115 ug/dL (37-170)
[2023-05-21 13:14] LABS: Percent Iron Saturation 53 % (20-50)
[2023-05-23 17:14] LABS: SM Antibody <1.0; SM/RNP Antibody <1.0
[2023-05-25 06:53] LABS: Red Blood Cell Folate 695 ng/mL RBC (>280)
[2023-05-26 10:26] LABS: SS-A <1.0; SS-B <1.0; Scleroderma 70 Antibody <1.0
[2023-05-26 18:10] LABS: Lupus dRVVT Screen 37 sec (<=45); PTT-LA Screen 37 sec (<=40)
== END 2023-05-21 11:44 | disposition home or self-care (01) ==
PROVIDERS: PCP Internal Medicine; Referring Provider Internal Medicine; Visit Provider Internal Medicine
DX: E78.5 Hyperlipidemia, unspecified (principal); D64.9 Anemia, unspecified; D75.89 Other specified diseases of blood and blood-forming organs; J35.8 Other chronic diseases of tonsils and adenoids; R53.83 Other fatigue; K76.89 Other specified diseases of liver; F32.5 Major depressive disorder, single episode, in full remission; I73.00 Raynaud's syndrome without gangrene; R76.8 Other specified abnormal immunological findings in serum
CPT/HCPCS: 36415; 80053; 80061; 82607; 82747; 83540; 83550; 84443; 85025; 85613; 85730; 86160; 86225; 86235

== ENCOUNTER 2023-05-26 15:34 | Outpatient (CLI) | payer MEDICARE, SELFPAY ==
--- NOTE | ~2023-05-26 | XR_ITS ---
XR chest 2V DATE: 05/26/2023 15:57 INDICATION: Fine crackles in right lower lobe. Possible aspiration. TECHNIQUE: PA and lateral views COMPARISON: 02/18/2022 CT chest FINDINGS: There is discoid atelectasis or scarring at the base of the right lower lobe, also noted on 02/18/2022 CT chest examination. The lungs are moderately hyperinflated suggesting obstructive airways disease. No pulmonary infiltrat e or consolidation, pleural effusion or pulmonary vascular congestion or pneumothorax is detected. Normal heart size. Aortic calcification and unfolding. No hilar or mediastinal enlargement is evident . L2 burst fracture is again noted, present on 02/18/2022 CT chest examination. There is mild proximal lumbar levoscoliosis and degenerative spurring of the thoracic spine. Osteopenia. IMPRESSION: Likely chronic discoid scarring at the right lung base Moderate hyperinflation Chronic burst fracture deformity of L2 Osteopenia Reviewed, dictated and finalized at location B.
== END 2023-05-26 15:35 | disposition home or self-care (01) ==
LOC: ANHIMG 15:35
PROVIDERS: PCP Internal Medicine; Visit Provider Nurse Practitioner
DX: R09.89 Other specified symptoms and signs involving the circulatory and respiratory systems (principal); M85.88 Other specified disorders of bone density and structure, other site; S32.021A Stable burst fracture of second lumbar vertebra, initial encounter for closed fracture; X58.XXXA Exposure to other specified factors, initial encounter
CPT/HCPCS: 71046

== ENCOUNTER 2023-06-11 00:42 | Day surgery (SDC) | payer MEDICARE, SELFPAY ==
[2023-05-30 14:13] VITALS: BMI 23.6
--- NOTE | 2023-06-09 13:18 | SUR.PREOP ---
Patient called regarding upcoming procedure. Voicemail left regarding appointment times.
[2023-06-11 13:55] VITALS: BP 127/78; PULSE 85; RESP 16; TEMP 36.7; O2SAT 96; BMI 23.8
[2023-06-11] MEDS: LACTATED RINGERS 1,000 ML 150 ML IV CONT (14:16)
--- NOTE | 2023-06-11 14:19 | WPDANESEPPF ---
Anes - Initial Pre Proc Eval Procedure: Operation Date: 06/11/23 15:00 Proposed Procedures p Esophagogastroduodenoscopy - Carlos Miller MD Date/Time: 06/11/23 14:19 Surgeon: Carlos Miller MD Pre Op Diagnosis: Cough, GERD, Dysphagia Patient Data Age: 73 Gender: F Height: 1.55 m Weight: 57.2 kg Last Vital Signs Temp 98.0 F 06/11/23 13:55 Pulse 85 06/11/23 13:55 Resp 16 06/11/23 13:55 BP 127/78 06/11/23 13:55 Pulse Ox 96 06/11/23 13:55 O2 Del Method Room Air 06/11/23 13:55 Allergies Allergy/AdvReac Type Severity Reaction Status Date / Time codeine Allergy Severe Itching Verified 06/11/23 14:00 venom-honey bee Allergy Severe Swelling Verified 06/11/23 14:00 Iodinated Contrast Media Allergy Intermediate hives Verified 06/11/23 14:00 NSAIDS (Non-Steroidal Allergy Intermediate Other Verified 06/11/23 14:00 Anti-Inflamma erythromycin base AdvReac Severe Gastrointestinal Verified 06/11/23 14:00 Upset Home Medications Medication Instructions Recorded Confirmed Type acetaminophen 650 mg 650 mg PO Q8H PRN Pain 05/18/19 06/11/23 History tablet,extended release (Tylenol Arthritis Pain) ascorbate calcium (vitamin C) 500 500 mg PO DAILY 05/18/19 06/11/23 History mg tablet beta carotene 7,500 mcg (25,000 25,000 unit PO DAILY 05/18/19 06/11/23 History unit) capsule lutein 25 mg-zeaxanthin 5 mg 1 cap PO DAILY 05/18/19 06/11/23 History capsule magnesium 250 mg tablet 250 mg PO DAILY 05/18/19 06/11/23 History omega-3 fatty acids 1,000 mg 1,000 mg PO BID 05/18/19 06/11/23 History capsule (Fish Oil Concentrate) vitamin B complex 1 cap PO DAILY 05/18/19 06/11/23 History cetirizine 10 mg capsule (All Day 10 mg PO DAILY PRN Allergy Symptoms 06/24/22 06/11/23 History Allergy (cetirizine)) clonazepam 0.5 mg tablet 0.25 mg PO DAILY PRN Restless 06/24/22 06/11/23 History Leg(S) epinephrine 0.3 mg/0.3 mL 0.3 mg (0.3 mL) IM ONCE PRN 08/26/22 06/11/23 Rx injection, auto-injector anaphylaxis #2 ea ergocalciferol (vitamin D2) 10 mcg 600 unit PO DAILY 12/02/22 06/11/23 History (400 unit) tablet guaifenesin 600 mg tablet, 600 mg PO BID 12/12/22 06/11/23 History extended release 12 hr fluticasone propionate 50 1 spray intranasal DAILY PRN 12/17/22 06/11/23 History mcg/actuation nasal ALLERGIES spray,suspension (Allergy Relief (fluticasone)) gabapentin 100 mg capsule 100 mg PO TID #270 caps 02/06/23 06/11/23 Rx gabapentin 800 mg tablet 800 mg PO TID #270 tabs 02/06/23 06/11/23 Rx Astapro 2 spray EACH NARE DAILY PRN 06/02/23 06/11/23 History Allergy Symptoms Calcium 600 + D(3) 1 cap PO DAILY 06/02/23 06/11/23 History glucosamine sulf dipotassium Cl 1 tablet PO BID 06/02/23 06/11/23 History 750 mg-chondroitin sulf 600 mg tablet (Glucosamine-Chondroitin 3X Triple Strength) loratadine 10 mg tablet 10 mg PO DAILY PRN Allergy Symptoms 06/02/23 06/11/23 History omeprazole 40 mg capsule,delayed 40 mg PO HS 06/02/23 06/11/23 History release potassium 99 mg tablet 99 mg PO DAILY 06/02/23 06/11/23 History vitamin E 400 unit tablet 400 mg PO BID 06/02/23 06/11/23 History Patient hx anesthesia problems: none Family hx anesthesia problems: none Results Review: All pre-operative results and documents have been reviewed as part of the pre-operative evaluation. [facility] Past Medical History Medical History NADINE positive Colon cancer screening Cough Dysphagia Hepatitis B Hepatitis C Lung crackles Normal colonoscopy Shingles Surgical History Surgical History History of liver biopsy (~2008) Family History Family History Mother Patient's mother is in good health Hypertension Family history of congestive heart failure Heart disease Thyroid disorder Fathe
--- NOTE | 2023-06-11 14:47 | WPDHPUPDATE1 ---
History and Physical Update Update Date/Time: 06/11/23 14:47 History and Physical has been reviewed, including an updated exam of the patient. There are NO changes in the patient's condition. Risks, benefits, and alternatives have been discussed and questions answered. Patient agrees to proceed with procedure.
[2023-06-11 14:57] VITALS: BP 111/67; PULSE 78; RESP 13; O2SAT 94
[2023-06-11 15:07] VITALS: BP 117/74; PULSE 86; RESP 14; O2SAT 95
[2023-06-11 15:17] VITALS: BP 109/67; PULSE 77; RESP 12; O2SAT 96
== END 2023-06-11 15:33 | disposition home or self-care (01) ==
PROVIDERS: PCP Internal Medicine; Visit Provider Internal Medicine Gastroenterology
PROC: 0DJ08ZZ Inspection of Upper Intestinal Tract, Via Natural or Artificial Opening Endoscopic (ICD-10-PCS; CPT 43235; principal; 2023-06-11 15:00)
DX: K29.50 Unspecified chronic gastritis without bleeding (principal); K21.9 Gastro-esophageal reflux disease without esophagitis; I73.00 Raynaud's syndrome without gangrene; J84.9 Interstitial pulmonary disease, unspecified; Z87.891 Personal history of nicotine dependence; Z86.19 Personal history of other infectious and parasitic diseases
CPT/HCPCS: 43239; 88305; J2704; J7120

== ENCOUNTER 2023-07-07 13:26 | Outpatient (CLI) | payer MEDICARE, SELFPAY ==
--- NOTE | ~2023-07-07 | MM_ITS ---
EXAMINATION: MM screening [place] BI w brian HISTORY: Screening mammogram TECHNIQUE: Craniocaudal and mediolateral oblique 3-D tomosynthesis images were obtained and synthetic 2-D images were generated. CAD analysis was submitted and interpreted. COMPARISON: 02/16/2022, 02/15/2021 bilateral screening mammogram examinations BREAST PARENCHYMAL COMPOSITION: There are scattered areas of fibroglandular density. FINDINGS: There is no evidence of suspicious mass, calcification, or architectural distortion to sugg est malignancy in either breast. There has been no suspicious interval change. IMPRESSION: 1. No mammographic evidence of malignancy. 2. Recommend routine screening mammography in one year. BI-RADS Category 1: Negative Reviewed, dictated and finalized at location A.
== END 2023-07-07 13:27 | disposition home or self-care (01) ==
PROVIDERS: PCP Internal Medicine; Visit Provider Obstetrics & Gynecology
DX: Z12.31 Encounter for screening mammogram for malignant neoplasm of breast (principal)
CPT/HCPCS: 77063; 77067

== ENCOUNTER 2024-01-27 14:42 | Outpatient (CLI) | payer MEDICARE, SELFPAY ==
--- NOTE | ~2024-01-27 | DEXA_ITS ---
Bone Density Report Name: EDMUND ALEX Age: 74 Sex: Female Ethnicity: White Date of : 1950 Indication: postmenopausal; screening for osteoporosis; height loss; prior fracture; Referring Provider: MILA, MULUGETA Mccoy Study: Bone densitometry was performed. Exam Date: January 27, 2024 Accession number: [id number] Bone Density: Region BMD T-score Z-score Classification AP Spine(L1-L4) 1.150 0.9 3.3 Normal Femoral Neck (Left) 0.763 -0.8 1.3 Normal Total Hip (Left) 0.885 -0.5 1.3 Normal Femoral Neck (Right) 0.730 -1.1 1.0 Osteopenia Total Hip (Right) 0.781 -1.3 0.4 Osteopenia Total Hip Mean 0.833 -0.9 0.9 Normal World Health Organization criteria for BMD impression classify patients as: Normal (T-score at or above -1.0), Osteopenia (T-score between -1.0 and -2.5), or Osteoporosis (T-score at or below -2.5). 10-year Fracture Risk: FRAX not reported because: Prior hip or vertebral fracture Previous Exams: Region Exam Age BMD T-score BMD Change BMD Change Date g/cm2 vs Baseline vs Previous AP Spine (L1-L4) 01/27/2024 74 1.150 0.9 -0.014 (-1.2%) 0.022 (1.9%) 09/07/2019 69 1.128 0.7 -0.036 (-3.1%) -0.003 (-0.2%) 12/15/2017 67 1.131 0.8 -0.033 (-2.9%) -0.033 (-2.9%) 12/09/2011 61 1.164 1.1 Total Hip(Left) 01/27/2024 74 0.885 -0.5 -0.164 (-15.6% 0.019 (2.2%) 01/22/2022 72 0.865 -0.6 -0.183 (-17.5% -0.051 (-5.6%) 09/07/2019 69 0.917 -0.2 -0.132 (-12.6% -0.016 (-1.7%) 12/15/2017 67 0.933 -0.1 -0.116 (-11.0% -0.029 (-3.0%) 12/29/2014 64 0.962 0.2 -0.087 (-8.3%) -0.087 (-8.3%) 12/09/2011 61 1.049 0.9 Total Hip(Right) 01/27/2024 74 0.781 -1.3 -0.155 (-16.5% -0.037 (-4.5%) 01/22/2022 72 0.818 -1.0 -0.117 (-12.6% -0.022 (-2.6%) 09/07/2019 69 0.840 -0.8 -0.096 (-10.2% 0.008 (1.0%) 12/15/2017 67 0.832 -0.9 -0.104 (-11.1% -0.066 (-7.4%) 12/29/2014 64 0.898 -0.4 -0.038 (-4.0%) -0.038 (-4.0%) 12/09/2011 61 0.935 -0.1 *Denotes significance at 95% confidence level, LSC for AP Spine = 0.022 g/cm2, LSC for Total Hip = 0.027 g/cm2 # Denotes dissimilar scan types or analysis methods Clinical Information Provided by Patient: Have had a previous hip or vertebral fracture Has had a low trauma fracture Has used the following medications: Vitamin D, Calcium Patient maximum height was 62 No regular weight bearing exercise Drinks caffeinated beverages Onset of menses at age 12 Number of children 3 Impression: The patient has low bone mass, based on the Right Total Hip T-score. The patient has risk factors, including: previous fracture. The BMD for the Total Hip(Right) decreased, changing by -4.5% since the last DXA exam. Discussion: INCREASED RISK OF FRACTURE DUE TO HISTORY OF FRACTURE. The patient's previous fracture puts the patient at high risk of a future fracture. In untreated patients, the risk of osteoporotic fracture increases approximately two-fold for each 1.0 SD decrease in T-score. Low bone density is not the only risk factor for fracture; also consider factors such as patient's age, frailty or poor health, risk of falling, risk of injury, previous osteoporotic fracture, family history of osteoporosis, cigarette smoking, low body weight, etc. Not everyone with a low trauma fracture has osteoporosis; osteomalacia and other metabolic bone disorders should also be considered. Patients who have osteoporosis should be evaluated for specific diseases and conditions (secondary causes) that may cause or contribute to bone loss and fracture risk. National Osteoporosis Foundation (NOF) recommends pharmacologic intervention for patients with a prior hip or vertebral fracture regardless of BMD T-score. The patient should follow a healthful lifestyle (good nutrition with adequate calcium and vitamin D, and appropriate weight-bearing exercise). Follow-Up: Consider a repeat BMD and Vertebral Fracture Assessment (VFA) exam in 2 years or sooner if medically necessary, to reassess this patient's status. Reported by: TAYE on 01/27/2024 3:31:00 PM. Reviewed, dictated and finalized at location [facility]
== END 2024-01-27 14:43 | disposition home or self-care (01) ==
LOC: ANHIMG 14:43
PROVIDERS: PCP Internal Medicine; Visit Provider Physician Assistant
DX: M85.89 Other specified disorders of bone density and structure, multiple sites (principal); Z78.0 Asymptomatic menopausal state
CPT/HCPCS: 77080

== ENCOUNTER 2024-02-16 11:25 | Outpatient (CLI) | payer MEDICARE, SELFPAY ==
[2024-02-16 12:01] LABS: Basophils Percent Auto 0.7 % (0.2-1.2); Eosinophils Absolute Auto 0.1 K/mm3 (0-0.3); Eosinophils Percent Auto 2.3 % (0-4.4); Hemoglobin 12.5 g/dL (12.0-15.0); Immature Granulocyte Absolute 0.01 K/mm3 (0.00-0.031); Immature Granulocyte Percent A 0.2 % (0-0.5); Lymphocytes Percent Auto 41.2 % (18.3-44.2); Mean Corpuscular HGB Conc 32.9 g/dl (32-36); Mean Corpuscular Hemoglobin 33.2 pg (26-34); Mean Corpuscular Volume 101.1 fl (80-100); Mean Platelet Volume 8.8 fl (7.4-10.4); Monocytes Absolute Auto 0.6 K/mm3 (0.1-0.6); Monocytes Percent Auto 9.9 % (2.6-8.5); Neutrophils Absolute Auto 2.8 K/mm3 (1.3-6.7); Neutrophils Percent Auto 45.7 % (45.5-73.1); Platelet Count Result 233 k/mm3 (150-375); Red Blood Count 3.76 M/mm3 (4.2-5.4); Red Cell Distribution Width 13.4 % (11.5-14.5); White Blood Count 6.1 K/mm3 (4.5-10.0)
[2024-02-16 12:11] LABS: Add Urine Microscopic? NO; Appearance Urine Clear (Clear); Bilirubin Urine Negative (Negative); Blood Urine Negative (Negative); Color Urine Yellow (Yellow); Glucose Urine UA Negative (Negative); Ketones Urine Negative (Negative); Leukocyte Esterase Ur Negative LEU/UL (Negative); Nitrate Urine Negative (Negative); Protein Urine Negative (Negative); Specific Grav Ur 1.015 (1.001-1.035); Urobilinogen Urine 0.2 mg/dL (<2.0); pH Urine 7.5 (5.0-9.0)
[2024-02-16 12:16] LABS: Alanine Aminotransferase 13 U/L (6-35); Albumin Level 4.4 g/dL (3.5-5.1); Alkaline Phosphatase 61 U/L (38-126); Anion Gap 4 mmol/L (4-12); Aspartate Amino Transferase 33 U/L (14-36); Bilirubin,Total 0.7 mg/dL (0.2-1.3); Blood Urea Nitrogen 9 mg/dL (7-17); Carbon Dioxide 30 mmol/L (22-30); Chloride 101 mmol/L (98-107); Estimated Glomerular Filt Rate > 60; Glucose 82 mg/dL (65-110); Potassium 4.2 mmol/L (3.4-5.0); Sodium 135 mmol/L (137-145)
[2024-02-16 12:55] LABS: Iron 110 ug/dL (37-170)
[2024-02-16 13:05] LABS: Percent Iron Saturation 38 % (20-50)
== END 2024-02-16 11:26 | disposition home or self-care (01) ==
PROVIDERS: PCP Nurse Practitioner Family; Visit Provider Nurse Practitioner Family
DX: I87.1 Compression of vein (principal); D64.9 Anemia, unspecified; Z86.19 Personal history of other infectious and parasitic diseases
CPT/HCPCS: 36415; 80048; 80076; 81003; 82728; 83540; 83550; 85025

== ENCOUNTER 2024-07-08 15:09 | Outpatient (CLI) | payer MEDICARE, SELFPAY ==
--- NOTE | ~2024-07-08 | MM_ITS ---
EXAMINATION: MM screening [place] BI w brian HISTORY: Screening TECHNIQUE: Craniocaudal and mediolateral oblique 3-D tomosynthesis images were obtained and synthetic 2-D images were generated. CAD analysis was submitted and interpreted. COMPARISON: Comparison to multiple prior studies sequentially, with oldest reviewed study dated 04/23. BREAST PARENCHYMAL COMPOSITION: Not dense: There are scattered areas of fibroglandular density. FINDINGS: There is no evidence of suspicious mass, calcification, or architectural distortion to sugg est malignancy in either breast. There has been no suspicious interval change. IMPRESSION: 1. No mammographic evidence of malignancy. 2. Recommend routine screening mammography in one year. BI-RADS Category 1: Negative Reviewed, dictated and finalized at location A.
--- OUTSIDE RECORDS SUMMARY | 2024-07-08 15:36 | XMS_ITS | Continuity of Care Document ---
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, [address] [place] [address] [address], [place], [place], [id number], tel:[phone] [facility] No Information Maddison Quinonez. [address] [place], [address], [place]. tel:[phone] Referring Provider: Cristiano Ricardo, [address] [place], [address]. tel:[phone] [facility], [address] [place] [address] [address], [place], [place], [id number], [place] tel:[phone] [facility] No Information Maddison Quinonez. [address] [place], [address], [place]. tel:[phone] Referring Provider: Oh Gonzalez MD B, [address], [place], [address]. tel:[phone] Family History Family Member Type Diagnosis Age At Onset No Information Payers Payer name Insurance type Covered green party ID Authoriza tion(s) No Information Social History Type Description Quantity Date Captured Comments Sex Female Smoking Status No Information Chief Complaint And Reason For Visit No Information Reason For Referral Reason For Referral No Information History Of Present Illness Encounter Date Complaint History Of Prese nt Illness No Information Functional Status Date Functional Assessmen t No Information Instructions Date Instruction Additional Infor mation No Information Assessments Type Assessment Date No Information Patient Care Teams Name Effective Dates (start - stop) Status Members No Information
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
--- OUTSIDE RECORDS SUMMARY | 2024-07-08 15:36 | XMS_ITS | Encounter Summary ---
Author Organization [facility] Address [address] [place] [address] Care Team Providers Care Marine Electrician Name Role Phone Morgan Torres Primary Care Provider [phone] Juan Ramon Miranda PA-C Primary Care Provide r Encounter Details Date Type Department Care Team (Late st Contact Info) Description 11/21/2015 Lab Requisition [facility] [address] [place] [address] Unknown, Provider Social History Tobacco Use Types Packs/Day Years Used Date Smoking Tobacco: Never Assessed Comments Unknown Sex and Gender Information Value Date Recorded Sex Assigned at Not on file Legal Sex Female 7:48 PM CDT Gender Identity Not on file Sexual Orientation Not on file documented as of this encounter Plan of Treatment Not on file documented as of this encounter Procedures Procedure Name Priority Date/Time Associated Diagnosis Comments RUBEOLA ANTIBODY IGG Routine 11/21/2015 10:55 AM CDT MUMPS ANTIBODY IGG Routine 11/21/2015 10 :55 AM CDT VARICELLA ZOSTER ANTIBODY IGG Routine 11/21/2015 10:55 AM CDT RUBELLA ANTIBODY IGG Routine 11/21/2015 10:55 AM CDT HEPATITIS B SURFACE ANTIBODY Routine 11/21/2015 10:55 AM CDT HEPATITIS A IGM ANTIBODY Routine 11/21/2015 10:55 AM CDT documented in this encounter Results * HEPATITIS A IGM ANTIBODY (11/21/2015 10:55 AM CDT) Pathologist [facility] HAV Antibody IgM Non Reactive Non Reactive 11/21/2015 9:46 PM CDT [facility] Blood BLOOD SPECIMEN / Unknown Venipuncture / Unknown 11/21/2015 10:55 AM CDT 11/21/2015 7:49 PM CDT us Provider Unknown LAB - CHEMISTRY ORDERABLES Erna l Result Performing Organization Address [facility] Co de Phone Number [facility] [address] [place] [address] * VARICELLA ZOSTER ANTIBODY IGG (11/21/2015 10:55 AM CDT) [facility] Varicella zoster Virus Antibody IgG 1120 Immune >165 index 11/23/2015 1:15 PM CDT [facility] ([facility]) Comment: Negative <135 Equivocal 135 - 165 Positive >165 A positive result generally indicates exposure to the pathogen or administration of specific immunoglobulins, but it is not indication of active infection or stage of disease. Blood specimen (specimen) BLOOD SPECIMEN / Unknown Venipuncture / Unknown 11/21/2015 10:55 AM CDT 11/21/2015 7:49 PM CDT Narrative [facility] ([facility]) - 11/23/2015 1:15 PM CDT Performed at: [address] [place] [id number] Percolator Operator: Gordon Mallory PhD, Phone: [phone] us Provider Unknown LAB - CHEMISTRY ORDERABLES Erna l Result Performing Organization Address City/[facility]/ZIP Co de Phone Number [facility] ([facility]) [address] [place] [address] * RUBEOLA ANTIBODY IGG (11/21/2015 10:55 AM CDT) Pathologist [facility] Measles (Rubeola) Antibody IgG 270.0 Immune >29.9 AU/mL 11/23/2015 1:15 PM CDT [facility] ([facility]) Comment: Negative <25.0 Equivocal 25.0 - 29.9 Positive >29.9 Presence of antibodies to Rubeola is presumptive evidence of immunity except when acute infection is suspected. Blood specimen (specimen) BLOOD SPECIMEN / Unknown Venipuncture / Unknown 11/21/2015 10:55 AM CDT 11/21/2015 7:49 PM CDT Narrative [facility] ([facility]) - 11/23/2015 1:15 PM CDT Performed at: [address] [place] [id number] Percolator Operator: Gordon Mallory PhD, Phone: [phone] Provider Unknown LAB - CHEMISTRY ORDERABLES Erna l Result Performing Organization Address [facility] Co de Phone Number [facility] [address] [place] [address] * (ABNORMAL) MUMPS ANTIBODY IGG (11/21/2015 10:55 AM CDT) [facility] Mumps Virus Antibody IgG Index <9.0(L) Immune >10.9 AU/mL 11/23/2015 1:15 PM CDT [facility] ([facility]) Comment: Negative <9.0 Equivocal 9.0 - 10.9 Positive >10.9 A positive result generally indicates past exposure to Mumps virus or previous vaccination. Blood specimen (specimen) BLOOD SPECIMEN / Unknown Venipuncture / Unknown 11/21/2015 10:55 AM CDT 11/21/2015 7:49 PM CDT [facility] ([facility]) - 11/23/2015 1:15 PM CDT Performed at: [address] [place] [id number] Percolator Operator: Gordon Mallory PhD, Phone: [phone] Provider Unknown LAB - CHEMISTRY ORDERABLES Erna l Result Performing Organization Address [facility] de Phone Number [facility] ([facility]) [address] [place] [address] * RUBELLA ANTIBODY IGG (11/21/2015 10:55 AM CDT) Rubella Antibody IgG Positive - Immune 11/21/2015 9:16 PM CDT [facility] Blood BLOOD SPECIMEN / Unknown Venipuncture / Unknown 11/21/2015 10:55 AM CDT 11/21/2015 7:49 PM CDT us Provider Unknown LAB - SEROLOGY ORDERABLES Final Result Performing Organization Address City/[facility]/ZIP Co de Phone Number [facility] [address] [place] [address] * (ABNORMAL) HEPATITIS B SURFACE ANTIBODY (11/21/2015 10:55 AM CDT) HBsAb REACTIVE(A ) Non Reactive 11/21/2015 9:07 PM CDT [facility] Blood BLOOD SPECIMEN / Unknown Venipuncture / Unknown 11/21/2015 10:55 AM CDT 11/21/2015 7:49 PM CDT us Provider Unknown LAB - CHEMISTRY ORDERABLES Erna l Result Performing Organization Address City/[facility] Co de Phone Number [facility] [address] [place] [address] documented in this encounter Visit Diagnoses Not on filedocumented in this encounter Care Teams Marine Electrician Relationship Specialty Start Date End Date Morgan Torres DO [address] [place] [address] PCP - General Internal Medicine 12/28/18 12/05/21 Juan Ramon Miranda PA-C [address] [place] [address] PCP - General Physician Ssds Mk 2 Advanced Operator 12/06/21 documented as of this encounter
== END 2024-07-08 15:10 | disposition home or self-care (01) ==
PROVIDERS: PCP Nurse Practitioner Family; Visit Provider Obstetrics & Gynecology
DX: Z12.31 Encounter for screening mammogram for malignant neoplasm of breast (principal)
CPT/HCPCS: 77063; 77067

== ENCOUNTER 2024-08-12 11:16 | Outpatient (CLI) | payer MEDICARE, SELFPAY ==
[2024-08-12 11:54] LABS: Basophils Percent Auto 0.5 % (0.2-1.2); Eosinophils Absolute Auto 0.1 K/mm3 (0-0.3); Eosinophils Percent Auto 1.6 % (0-4.4); Hematocrit 37.1 % (37.0-47.0); Hemoglobin 12.2 g/dL (12.0-15.0); Immature Granulocyte Absolute 0.01 K/mm3 (0.00-0.031); Immature Granulocyte Percent A 0.2 % (0-0.5); Lymphocytes Absolute Auto 2.35 K/mm3 (0.9-3.2); Lymphocytes Percent Auto 41.7 % (18.3-44.2); Mean Corpuscular HGB Conc 32.9 g/dl (32-36); Mean Corpuscular Hemoglobin 32.8 pg (26-34); Mean Corpuscular Volume 99.7 fl (80-100); Monocytes Absolute Auto 0.5 K/mm3 (0.1-0.6); Monocytes Percent Auto 9.4 % (2.6-8.5); Neutrophils Absolute Auto 2.6 K/mm3 (1.3-6.7); Neutrophils Percent Auto 46.6 % (45.5-73.1); Platelet Count Result 232 k/mm3 (150-375); Red Blood Count 3.72 M/mm3 (4.2-5.4); White Blood Count 5.6 K/mm3 (4.5-10.0)
[2024-08-12 12:15] LABS: Alanine Aminotransferase 12 U/L (6-35); Albumin Level 4.4 g/dL (3.5-5.1); Alkaline Phosphatase 53 U/L (38-126); Anion Gap 6 mmol/L (4-12); Aspartate Amino Transferase 35 U/L (14-36); Bilirubin,Total 0.4 mg/dL (0.2-1.3); Blood Urea Nitrogen 9 mg/dL (7-17); Calcium 9.4 mg/dL (8.4-10.2); Carbon Dioxide 29 mmol/L (22-30); Chloride 99 mmol/L (98-107); Cholesterol 206 mg/dL (0-200); Estimated Glomerular Filt Rate > 60; Glucose 78 mg/dL (65-110); HDL Direct 83 mg/dL; Potassium 4.4 mmol/L (3.4-5.0); Sodium 134 mmol/L (137-145); Total Protein 7.8 g/dL (6.3-8.2); Triglycerides 110 mg/dL (<150)
[2024-08-12 12:21] LABS: LDL Cholesterol Direct 81 mg/dL
--- OUTSIDE RECORDS SUMMARY | 2024-08-12 12:22 | XMS_ITS | Continuity of Care Document ---
Author Organization [facility] Address [address] [place] [address] Phone Care Team Providers Care Plaster Mechanic Name Role Phone Cristiano Washburn Unavailable Unavailable Procedures Procedure Date Eye Exam Established Pt Eye Exam Established Pt Ophthalmoscopy, Subsequent Advance Directives Directive Yes / No Effective Date File Name No Information Encounters Encounter Description Practice Location Reason(s) For Visit Diagnoses Date Provider Providers Copied on Encounter [facility], [address] [place] [address] [address], [place], [place], [id number], tel:[phone] [facility] No Information Maddison Quinonez. [address] [place], [address], [place]. tel:[phone] Referring Provider: Cristiano Ricardo, [address] [place], [address]. tel:[phone] [facility], [address] [place] [address] [address], [place], [place], [id number], [place] tel:[phone] [facility] [place] No Information Maddison Quinonez. [address] [place], [address], [place]. tel:[phone] Referring Provider: Oh Gonzalez MD B, [address], [place], [address]. tel:[phone] Family History Family Member Type Diagnosis Age At Onset No Information Payers Payer name Insurance type Covered libertarian ID Authoriza tion(s) No Information Social History [...]
--- OUTSIDE RECORDS SUMMARY | 2024-08-12 12:22 | XMS_ITS | Clinical Summary ---
Author Organization [facility] Address [address] [place] [address] Care Team Providers Care Evs Manager Name Role Phone Juan Ramon Miranda PA-C Primary Care Provide r Source Comments [facility],non-owned Affiliates and Associated Physician Practices is amultiple site organization consisting of ambulatory clinics and hospital sitesin [place], [place], [place] and [place]. This disclosure is being madepursuant to the Care Everywhere program and may not contain all information available regarding this patient. Last updated 17.[facility] Allergies Active Allergy Reactions Criticality Noted Date [...] mouth 3 times daily as needed Active Abbot-3 Fatty Acids (FISH OIL) 1000 MG capsule [...] daily Active beta carotene (CVS BETA CAROTENE) 21113 units capsule Take 25,000 Units by mouth [...] 5:48 PM CDT Height 154.9 cm (5' 1) 12/06/2021 5:48 PM CDT Body Mass Index [...] Phone Billing Address Personal/Family Self [address] [address] [facility] MEDICARE MEDICARE AARP Member Subscriber Plan / Payer (Ef fective for All Dates) Name:Cindy, Batsheva Member ID:Not on file Relation to Subscriber:Self Name:Cindy, Batsheva Subscriber ID:Not on file Payer ID:Not on file Group ID:Not on file Type:Commercial Address: [place] [phone] MEDICARE [facility] MEDICARE AAR Advance Directives * Full Code (Latest Code Status on File) Date Activated Date Inactivated Comments 12/07/2021 4:14 AM 12/07/2021 7:32 PM Care Teams Evs Manager Relationship Specialty Start Date End Date Juan Ramon Miranda PA-C [address] [place] [address] PCP - General Physician Custodial Maintenance Worker 12/06/21
--- OUTSIDE RECORDS SUMMARY | 2024-08-12 12:22 | XMS_ITS | Encounter Summary ---
Author Organization [facility] Address [address] [place] [address] Care Team Providers Care Fitting Room Maintenance Mechanic Name Role Phone Morgan Torres Primary Care Provider [phone] Juan Ramon Miranda PA-C Primary Care Provide r Encounter Details Date Type Department Care Team (Late st Contact Info) Description 11/21/2015 Lab Requisition [facility] [address] [place] [address] Unknown, Provider Social History Tobacco Use Types [...] IGM ANTIBODY (11/21/2015 10:55 AM CDT) Pathologist [facility] HAV Antibody IgM Non Reactive Non Reactive 11/21/2015 9:46 PM CDT [facility] Blood BLOOD SPECIMEN / Unknown Venipuncture / Unknown 11/21/2015 10:55 AM CDT 11/21/2015 7:49 PM CDT us Provider Unknown LAB - CHEMISTRY ORDERABLES Erna l Result Performing Organization Address [facility] Co de Phone Number [facility] [address] [place] [address] * VARICELLA ZOSTER ANTIBODY IGG (11/21/2015 10:55 AM CDT) [facility] Varicella zoster Virus Antibody IgG 1120 Immune >165 index 11/23/2015 1:15 PM CDT [facility] ([facility]) Comment: Negative <135 Equivocal 135 - 165 Positive >165 A positive result generally indicates exposure to the pathogen or administration of specific immunoglobulins, but it is not indication of active infection or stage of disease. Blood specimen (specimen) BLOOD SPECIMEN / Unknown Venipuncture / Unknown 11/21/2015 10:55 AM CDT 11/21/2015 7:49 PM CDT Narrative [facility] ([facility]) - 11/23/2015 1:15 PM CDT Performed at: [address] [place] [id number] Coupling Machine Operator: Gordon Mallory PhD, Phone: [phone] us Provider Unknown LAB - CHEMISTRY ORDERABLES Erna l Result Performing Organization Address City/[facility]/ZIP Co de Phone Number [facility] ([facility]) [address] [place] [address] * RUBEOLA ANTIBODY IGG (11/21/2015 10:55 AM CDT) Pathologist [facility] Measles (Rubeola) Antibody IgG 270.0 Immune >29.9 AU/mL 11/23/2015 1:15 PM CDT [facility] ([facility]) Comment: Negative <25.0 Equivocal 25.0 - 29.9 Positive >29.9 Presence of antibodies to Rubeola is presumptive evidence of immunity except when acute infection is suspected. Blood specimen (specimen) BLOOD SPECIMEN / Unknown Venipuncture / Unknown 11/21/2015 10:55 AM CDT 11/21/2015 7:49 PM CDT Narrative [facility] ([facility]) - 11/23/2015 1:15 PM CDT Performed at: [address] [place] [id number] Coupling Machine Operator: Gordon Mallory PhD, Phone: [phone] Provider Unknown LAB - CHEMISTRY ORDERABLES Erna l Result Performing Organization Address [facility] Co de Phone Number [facility] [address] [place] [address] * (ABNORMAL) MUMPS ANTIBODY IGG (11/21/2015 10:55 AM CDT) [facility] Mumps Virus Antibody IgG Index <9.0(L) Immune >10.9 AU/mL 11/23/2015 1:15 PM CDT [facility] ([facility]) Comment: Negative <9.0 Equivocal 9.0 - 10.9 Positive >10.9 A positive result generally indicates past exposure to Mumps virus or previous vaccination. Blood specimen (specimen) BLOOD SPECIMEN / Unknown Venipuncture / Unknown 11/21/2015 10:55 AM CDT 11/21/2015 7:[address] [facility] ([facility]) - 11/23/2015 1:15 PM CDT Performed at: [address] [place] [id number] Coupling Machine Operator: Gordon Mallory PhD, Phone: [phone] Provider Unknown LAB - CHEMISTRY ORDERABLES Erna l Result Performing Organization Address [facility] de Phone Number [facility] ([facility]) [address] [place] [address] * RUBELLA ANTIBODY IGG (11/21/2015 10:55 AM CDT) Rubella Antibody IgG Positive - Immune 11/21/2015 9:16 PM CDT [facility] Blood BLOOD SPECIMEN / Unknown Venipuncture / Unknown 11/21/2015 10:55 AM CDT 11/21/2015 7:49 PM CDT us Provider Unknown LAB - SEROLOGY ORDERABLES Final Result Performing Organization Address City/[facility]/ZIP Co de Phone Number [facility] [address] [place] [address] * (ABNORMAL) HEPATITIS B SURFACE ANTIBODY (11/21/2015 10:55 AM CDT) HBsAb REACTIVE(A ) Non Reactive 11/21/2015 9:07 PM CDT [facility] Blood BLOOD SPECIMEN / Unknown Venipuncture / Unknown 11/21/2015 10:55 AM CDT 11/21/2015 7:49 PM CDT us Provider Unknown LAB - CHEMISTRY ORDERABLES Erna l Result Performing Organization Address City/[facility] Co de Phone Number [facility] [address] [place] [address] documented in this encounter Visit Diagnoses Not on filedocumented in this encounter Care Teams Fitting Room Maintenance Mechanic Relationship Specialty Start Date End Date Morgan Torres DO [address] [place] [address] PCP - General Internal Medicine 12/28/18 12/05/21 Juan Ramon Miranda PA-C [address] [place] [address] PCP - General Physician Paper Sheeter 12/06/21 documented as of this encounter
[2024-08-12 13:17] LABS: Hepatitis C Virus Antibody Reactive (Negative)
[2024-08-14 16:23] LABS: Hepatitis C RNA, Quant PCR <15 NOT DETECTED IU/mL (NOT DETECTED)
== END 2024-08-12 11:17 | disposition home or self-care (01) ==
PROVIDERS: PCP Nurse Practitioner Family; Visit Provider Nurse Practitioner Family
DX: D64.9 Anemia, unspecified (principal); R53.83 Other fatigue; Z13.6 Encounter for screening for cardiovascular disorders; Z86.19 Personal history of other infectious and parasitic diseases; Z13.29 Encounter for screening for other suspected endocrine disorder
CPT/HCPCS: 36415; 80053; 80061; 82607; 84443; 85025; 86803; 87522

== ENCOUNTER 2025-02-18 11:53 | Outpatient (CLI) | payer MEDICARE, SELFPAY ==
[2025-02-18 12:19] LABS: Hematocrit 39.2 % (37.0-47.0); Hemoglobin 12.9 g/dL (12.0-15.0); Immature Granulocyte Percent A 0.2 % (0-0.5); Lymphocytes Absolute Auto 2.61 K/mm3 (0.9-3.2); Mean Corpuscular HGB Conc 32.9 g/dl (32-36); Mean Corpuscular Hemoglobin 33.6 pg (26-34); Mean Corpuscular Volume 102.1 fl (80-100); Nucleated Red Blood Cells Absolute Auto 0.000 K/mm3 (0.0-0.012); Nucleated Red Blood Cells Perc 0.0 % (0.0-0.2); Platelet Count Result 236 k/mm3 (150-375); Red Blood Count 3.84 M/mm3 (4.2-5.4); White Blood Count 6.6 K/mm3 (4.5-10.0)
[2025-02-18 12:25] LABS: Add Urine Microscopic? YES; Appearance Urine Clear (Clear); Glucose Urine UA Negative (Negative); Leukocyte Esterase Ur Trace LEU/UL (Negative); Nitrate Urine Negative (Negative); Non Pathogenic Casts 0-2; Specific Grav Ur 1.011 (1.001-1.035)
[2025-02-18 12:44] LABS: Alanine Aminotransferase 13 U/L (6-35); Albumin Level 4.4 g/dL (3.5-5.1); Alkaline Phosphatase 59 U/L (38-126); Anion Gap 4 mmol/L (4-12); Aspartate Amino Transferase 33 U/L (14-36); Bilirubin,Total 0.7 mg/dL (0.2-1.3); Blood Urea Nitrogen 10 mg/dL (7-17); Calcium 9.3 mg/dL (8.4-10.2); Carbon Dioxide 29 mmol/L (22-30); Chloride 101 mmol/L (98-107); Estimated Glomerular Filt Rate > 60; Glucose 84 mg/dL (65-110); Potassium 4.3 mmol/L (3.4-5.0); Sodium 134 mmol/L (137-145); Total Protein 8.0 g/dL (6.3-8.2)
[2025-02-18 12:59] LABS: Iron 111 ug/dL (37-170)
[2025-02-18 13:08] LABS: Percent Iron Saturation 38 % (20-50)
[2025-02-18 13:42] LABS: Ferritin 22.80 ng/mL (11.1-264)
== END 2025-02-18 11:54 | disposition home or self-care (01) ==
PROVIDERS: PCP Nurse Practitioner Family; Visit Provider Nurse Practitioner Family
DX: D64.9 Anemia, unspecified (principal); G25.81 Restless legs syndrome; Z13.0 Encounter for screening for diseases of the blood and blood-forming organs and certain disorders involving the immune mechanism
CPT/HCPCS: 36415; 80053; 81001; 82728; 83540; 83550; 85025